=== PATIENT | male | born 1970 | race Caucasian/White ===

== ENCOUNTER 2023-01-04 07:53 | Day surgery (SDC) | payer OTHER, SELFPAY ==
--- NOTE | 2023-01-03 12:30 | HO.ANESPROP2 ---
HPI - Anesthesia Eval Consult details Narrative: 52yo Colonoscopy [facility] Surgical History Surgical History H/O left knee surgery History of ankle surgery Hx of tonsillectomy Social History Social History Patient Tobacco Use Status: Former Tobacco user Are you DNR?: No Advance Directives: No Advance Directives Information Provided: Yes Meds Allergies Allergy/AdvReac Type Severity Reaction Status Date / Time codeine Allergy Unknown Verified 01/03/23 07:18 Home Medications Medication Instructions Recorded Confirmed Last Taken Type Advil 01/03/23 01/03/23 Unknown History Exam Exam Date and Time: January 03, 2023 1230 Assessment and Plan Assessment Anesthesia Assessment: Chart Reviewed
[2023-01-04 07:55] VITALS: BP 145/95; PULSE 70; RESP 18; TEMP 36.1; O2SAT 96; BMI 29.0
[2023-01-04] MEDS: Lactated Ringers 1,000 ML 100 ML IVCONT (08:16)
--- NOTE | 2023-01-04 08:45 | HO.ANESPROP2 ---
[facility] Surgical History Surgical History H/O left knee surgery History of ankle surgery Hx of tonsillectomy Social History Social History Patient Tobacco Use Status: Former Tobacco user Are you DNR?: No Advance Directives: No Advance Directives Information Provided: Yes Meds Allergies Allergy/AdvReac Type Severity Reaction Status Date / Time codeine Allergy Unknown Verified 01/03/23 07:18 Active Medications: Current Medications Lactated Ringer's (Lr) 1,000 mls @ 100 mls/hr IVCONT .Q10H BHAVIK Last Admin: 01/04/23 08:16 Dose: 100 mls/hr Home Medications Medication Instructions Recorded Confirmed Last Taken Type Advil 01/03/23 01/03/23 Unknown History Exam Exam Date and Time: January 04, 2023 0845 Height,Weight and Vital Signs: Height 5 ft 9.5 in Weight 90.265 kg Last Vital Signs Temp 97 F 01/04/23 07:55 Pulse 70 01/04/23 07:55 Resp 18 01/04/23 07:55 BP 145/95 H 01/04/23 07:55 Pulse Ox 96 01/04/23 07:55 O2 Del Method Room Air 01/04/23 07:55 Airway Mallampati Class: II TM Dist: >3cm Neck ROM: Full Heart: RRR Lungs: CTA Assessment and Plan Assessment Anesthesia Assessment: Anesthesia Plan Discussed Final Anesthetic Review ASA Class: II Final Preanesthetic Review: Meds/Allgs Chart Reviewed and Consent Obtained/Reviewed Patient Risk: Low Procedure Risk: Low Anesthetic Plan Anesthetic Plan: MAC: Disposition: Standard PACU
[2023-01-04 10:00] VITALS: BP 110/73; PULSE 80; RESP 16; TEMP 36.4; O2SAT 93
--- NOTE | 2023-01-04 10:03 | P.BOP_ITS ---
Brief Operative Note Date of Service: 01/04/23 Pre-op diagnosis: screening Post-op diagnosis: same Procedure: colonoscopy Surgeon: Dani Jones Anesthesia: MAC Was an Fire Sprinkler Service Technician used for this Procedure?: No Estimated blood loss (mL): 2 Pathology: other Condition: stable Disposition: PACU
--- NOTE | 2023-01-04 10:03 | MHC.SHP ---
Pre-Procedural Eval Section A Date of Service: 01/04/23 Section B Chief Complaint: screening Details of Present Illness: see H&P no changes Relevant Family History (Specify if Yes): No Relevant Social History: None Present Medications: see Short Stay Collaborative assessment Medical History: No relevant PMH History of Previous Operations: No relevant previous surgery Allergies: Allergies Allergy/AdvReac Type Severity Reaction Status Date / Time codeine Allergy Unknown Verified 01/03/23 07:18 Review of Systems Sugical H&P ROS: Negative: Constitution, Cardiovascular, Respiratory, Neurological, Psychiatric, Hem-Onc, Allergic/Immunologic, Gastrointestinal, Genitourinary, Musculoskeletal, Integumentary, Endocrine and Eyes/Ears/Nose/Throat Exam Surgical H&P Exam: Normal: HEENT, Normal: Heart, Normal: Lungs, Normal: Extremities, Normal: Abdomen, Normal: Skin and Normal: Neurological Plan Diagnosis/Plan: Unchanged I have reviewed the history and physical and performed a pertinent physical examination on my patient. No changes have occurred unless specified. Time Spent With Patient Time: Total time managing care of this patient today ____ minutes.
[2023-01-04 10:15] VITALS: BP 111/80; PULSE 73; RESP 16; O2SAT 93
[2023-01-04 10:30] VITALS: BP 111/80; PULSE 68; RESP 18; TEMP 36.1; O2SAT 95
--- NOTE | 2023-01-04 10:57 | OP_ITS ---
DATE OF SERVICE: 01/04/2023 SURGEON: Dani Jones MD INDICATIONS: Colon cancer screening. PREOPERATIVE DIAGNOSIS: POSTOPERATIVE DIAGNOSIS: PROCEDURE PERFORMED: Colonoscopy to the terminal ileum with biopsy. ESTIMATED BLOOD LOSS: COMPLICATIONS: ANESTHESIA: Monitored anesthesia care. ASSISTANTS: SPECIMENS: DESCRIPTION OF PROCEDURE: A history and physical was performed. The risks and benefits of the procedure were explained to the patient. Informed consent was obtained. The patient was placed in the left lateral decubitus position. A digital rectal exam was performed and was found to be normal. The Olympus pediatric video colonoscope was introduced into the rectum and advanced to the cecum. The cecum was identified by transillumination, palpation, and identification of the ileocecal valve. Abdominal wall pressure was used to assist in advancement of the scope due to looping in the sigmoid. He tolerated the procedure well and was returned to the recovery area in stable condition. FINDINGS: The terminal ileum was not examined. The visualized colonic mucosa was normal. The quality of the prep was good. A single polyp measuring less than 5 mm was identified at 70 cm from the anal verge and removed with a biopsy forceps. No other polyps were identified. Retroflexed examination showed moderate-sized internal hemorrhoids. IMPRESSION: Colon polyp. RECOMMENDATION: Follow up the biopsy results. MD ALFREDITO Montejo/JULIA / [id number] MTDD
--- NOTE | 2023-01-04 11:26 | HO.POSTANES ---
Post Anesthesia Evaluation Post Anesthesia Evaluation Date of Service: 01/04/23 Vital Signs: Vital Signs Temp Pulse Resp BP Pulse Ox O2 Del Method 01/04/23 10:30 97 F 68 18 111/80 95 01/04/23 10:15 73 16 111/80 93 Room Air 01/04/23 10:00 97.5 F 80 16 110/73 93 Room Air 01/04/23 07:55 97 F 70 18 145/95 H 96 Room Air Anesthesia: Monitored Mental Status: Awake Pain Control: Satisfactory Nausea/Vomiting: None Hydration: Adequate Anesthesia-Related Issues: No Anes. Related Issues
== END 2023-01-04 11:16 | disposition home or self-care (01) ==
PROVIDERS: PCP Internal Medicine; Visit Provider Internal Medicine Gastroenterology
PROC: 0DJD8ZZ Inspection of Lower Intestinal Tract, Via Natural or Artificial Opening Endoscopic (ICD-10-PCS; CPT 45378; principal; 2023-01-04 09:00)
DX: Z12.11 Encounter for screening for malignant neoplasm of colon (principal); D12.4 Benign neoplasm of descending colon; K64.8 Other hemorrhoids; Z87.891 Personal history of nicotine dependence; Z79.1 Long term (current) use of non-steroidal anti-inflammatories (NSAID)
CPT/HCPCS: 45380; 88305